=== PATIENT | male | born 1945 | race Caucasian/White ===

== ENCOUNTER 2017-03-07 08:48 | Inpatient (IN) | payer MEDICARE, OTHER ==
[~2017-03-07] VITALS: Ht 185.4 cm; Wt 103.1 kg
[~2017-03-07 08:48] MED LIST: B-STRESS CAP2000 MCG PO; BENEFIBER1 EAC1 PO; BIOTIN5 MG PO; CITRUCEL500 MG PO; CLOPIDOGREL75 MG PO; CVS OMEGA-3 KR1 EACH PO; DESONIDE15 G1 TOP; DIAZEPAM5 MG PO; FOLIC ACID0.8 M1 PO; GERITOL COMPLE1 EACH PO; HYDROCODON-ACE1 EA10 PO; IBUPROFEN600 MG PO; KETOCONAZOLE15 GM TOP; MULTI VITAMIN1 EACH PO; OXYBUTYNIN CHLOR5 MG PO; OXYCODONE HCL5 MG PO; POLYETHYLENE G255 GM PO; PROTOPIC100 G1 TOP; SAW PALMETTO80 MG PO; SIMVASTATIN80 MG PO; STOOL SOFTENER250 MG PO; SULFASALAZINE500 MG PO; VITAMIN C1000 M1 PO; ZESTRIL5 MG PO
[2017-03-07] MEDS ORDERED: METOPROLOL TART50 MG PO (09:28)
--- NOTE | 2017-03-07 15:27 | NUR ---
PATIENT ARRIVES TO CCU AT 1420 FROM ER. PATIENT IS A PARAPLEGIC AND IS BEING ADMITTED FOR PANCREATITIS. PATIENT RATES HIS ABDOMINAL PAIN A 10/10 AT THIS TIME. PATIENT'S LAST PAIN MEDICATION WAS AROUND 1100. PT NOTED TO BE SINUS TACHY AT 105-115 UPON ARRIVAL. PT IS ON ROOM AIR. BLOOD PRESSURES ARE ELEVATED AROUND 190-200/80-90. PATIENT CURRENTLY HAS A CONDOM CATHETER ON AND NORMALLY WILL SELF CATH HIMSELF TO VOID PATIENT HAS A NEUROGENIC BLADDER. PATIENT TO RECEIVE ANOTHER 1 L LR BOLUS AND TO BE STARTED ON A DILAUDID BOW MAKER. PATIENT GIVEN 0.5 MG IV DILAUDID AT THIS TIME. PT'S ANGELA VERY ATTENTIVE TO PATIENT AND HIS MAIN CAREGIVER AT HOME.
--- NOTE | 2017-03-07 17:03 | NUR ---
ATTEMPTED TO PLACE DICKENS CATHETER PER DR. AGUIRRE BUT UNABLE TO PLACE AN INDWELLING CATHETER AT THIS TIME. PT ABLE TO SELF CATH SELF FOR 625 ML URINE. NEW IV BAG OF FLUID HUNG AT 200 ML/HR. PT TO SELF CATH AGAIN AT 2029 THIS EVENING. PT HELPED TO REPOSITION IN BED. PT RESTING MORE COMFORAABLY AT THIS TIME. DELIVERY SPECIALIST DILAUDID TO BE SET UP.
[2017-03-07] MEDS ORDERED: LOPROX90 GM TOP (17:46)
--- NOTE | 2017-03-07 19:30 | NUR ---
REPORT RECEIVED FROM DAY SHIFT RN. PT AWAKE IN BED WATCHING TV, WITH IN THE ROOM. RESTING HR 90'S SINUS. NO REQUESTS OR COMPLAINTS AT THIS TIME.
--- NOTE | 2017-03-07 20:47 | NUR ---
10 MG IV LOPRESSOR GIVEN, HR IMMEDIATELY WENT FROM 105 TO 85. PT RATES PAIN AT THIS TIME 12/25, USING CUSTOMS HOUSE BROKER APPROPRIATELY.
--- NOTE | 2017-03-07 21:13 | NUR ---
ASSESSMENT DONE. PT IS PREPARING TO CATH HIMSELF. BP DOWN TO 162/85.
--- NOTE | 2017-03-07 22:59 | NUR ---
PT IS SLEEPING NOW, HR CONTINUES TO BE THE 80'S. HAVING BRIEF PERIODS OF SLEEP APNEA WITH DESATURATIONS TO 87% THEN QUICKLY BACK UP TO NINETIES.
--- NOTE | 2017-03-07 23:45 | NUR ---
PT REPOSITIONED ONTO BACK, DENIES NEEDS, ASSESSMENT DONE, ENCOURAGED TO USE CONTACT LENS POLISHER FOR PAIN.
--- NOTE | 2017-03-08 00:56 | NUR ---
PT CONTINUES TO HAVE FREQUENT PERIODS OF DESATURATIONS, DOWN TO 75% ON ROOM AIR. PLACED ON 2L/NC STILL DESATS TO 81%, TURNED UP TO 4L. WILL MONITOR.
--- NOTE | 2017-03-08 01:32 | NUR ---
BP UP TO 180/95 AND HR 105, WILL GIVE LOPRESSOR A LITTLE EARLIER. SPO2 STAYING ABOVE NINETY WITH PT WEARING 4L/NC. SLEEPING/SNORING LIGHTLY.
--- NOTE | 2017-03-08 02:00 | NUR ---
BP NOW DOWN TO 140/70 AFTER IV LOPRESSOR GIVEN. PT SLEEPING, STILL HAVING PERIODS OF DESATURATIONS.
--- NOTE | 2017-03-08 04:10 | NUR ---
BP ELEVATED BACK UP TO 180'S SYSTOLIC. PT HAS BEEN SLEEPING WELL THE LAST FEW HOURS, HAD STATED HE HADNT SLEPT IN THREE DAYS. WILL WAKE HIM UP TO SELF CATH AND RECHECK BP.
--- NOTE | 2017-03-08 05:03 | NUR ---
BP DOWN TO 157/78, HR 90'S. PT STATES HE SLEPT WELL, AND WILL NOW BE UP FOR THE MORNING. ASSESSMENT DONE, STATES ABDOMINAL PAIN CONTINUES, USING BIOFUELS PLANT SUPERINTENDENT FOR PAIN ONLY OCCASIONALLY DESPITE REMINDERS TO USE IT.
--- NOTE | 2017-03-08 05:19 | NUR ---
LAB IN TO DRAW
[2017-03-08] MEDS ORDERED: B COMPLEX1 EACH PO (07:44)
--- NOTE | 2017-03-08 07:44 | NUR ---
MED REC COMPLETE
--- NOTE | 2017-03-08 09:02 | NUR ---
DR AGUIRRE INTO SEE PT AT THIS TIME. ALL QUESTIONS ANSWERED.
--- NOTE | 2017-03-08 11:23 | NUR ---
REPORT CALLED TO M/S AT THIS TIME ALL QUESTIONS ANSWERED AND PT WILL BE TRANSPORTED VIA BED. ALL PERSOANL BELONGINGS TAKEN WITH PT.
--- NOTE | 2017-03-08 11:41 | NUR ---
PT C/O PAIN MEDICATED WITH 1MG DILAUDID IVP AT THIS TIME, PT ALSO TRANSFERED VIA BED TO ROOM 119. M/S RN UPDATED ALSO AT THIS TIME.
--- NOTE | 2017-03-08 11:47 | NUR ---
PT TO FLOOR AT 1140...VS OBTAINED. PAIN AT A TOLERABLE LEVEL. DENIES NEEDS AT THIS TIME.
--- NOTE | 2017-03-08 12:27 | NUR ---
REPOSITIONED PT ON L SIDE. TYLENOL ADMINISTERED FOR 10/10 SCHERER. FLU VAX GIVEN. PT DENIES FURTHER NEEDS. CALL LYNN IN REACH.
--- NOTE | 2017-03-08 13:34 | NUR ---
PT C/O SCHERER STILL ABOUT 8/10 WHEN HE SITS UP. PT ALSO C/O PAIN 10/10 IN HIS RUQ EXTENDING INTO HIS BACK. PAIN MEDICATION ADMINISTERED. PT VOIDED AT 1230, URINE DARK YELLOW. PT BOOSTED UP IN BED AND REPOSITIONED ON R SIDE. ENCOURAGED PT TO USE CALL LYNN IN 1 HOUR IF HIS PAIN IS STILL NOT TOLERABLE. CALL LYNN IN REACH.
--- NOTE | 2017-03-08 13:46 | NUR ---
PT WAS REPOSITIONED HIGHER IN THE BED AND ON HIS RIGHT SIDE. PT DID NOT NEED ANYTHING ELSE AT THE MOMENT
--- NOTE | 2017-03-08 14:20 | NUR ---
PT RESTING IN BED, MENTIONED HOW MUCH THE PAIN HAS TAKEN HOLD. SWELLING IN ABDOMEN, BUT STILL UPBEAT-JUST BACK FROM A TRIP TO SEE THEIR DAUGHTER. REALLY LOVES HIS FAMILY. SENT HIS HOME TO GET SOME REST. THEY ARE A WONDERFUL COUPLE THAT SELDOM COMPLAIN, AND CAN'T STAND TO BE AWAY FROM EACH OTHER. PT REQUESTED PRAYER, WILL FOLLOW NEEDED
--- NOTE | 2017-03-08 15:49 | NUR ---
ASSITED PT WITH REPOSITIONING BY REMOVING A PILLOW. PT NOW SUPINE. STATES HE WOULD LIKE TO REPOSITION IN A BIT. PT C/O PAIN 10/ IN RUQ EXTENDING INTO BACK. PAIN MEDS ADMINISTERED PER MAR. PT DENIES FURTHER NEEDS.
--- NOTE | 2017-03-08 16:42 | NUR ---
PT C/O CHEST PRESSURE THAT LASTED A FEW MINUTES ABOUT 10 MINUTES AGO. CALLED MD. OBTAINING VS AND EKG.
--- NOTE | 2017-03-08 16:59 | NUR ---
RT OBTAINING EKG AT THIS TIME.
--- NOTE | 2017-03-08 17:13 | NUR ---
PT RESTING IN BED. C/O PAIN 10/10 IN SAME SPOT. STATES THE PAIN IS SHARP. NO FLATUS OR STOOL IN COLOSTOMY BAG. HYPERACTIVE BS AUSCULTATED. AT BEDSIDE. PAIN MEDICATION ADMINISTERED PER AUG.
--- NOTE | 2017-03-08 17:24 | EKG ---
[facility] [address] [place] [address] Signed Normal sinus rhythm Biatrial enlargement Abnormal ECG When compared with ECG of 15-SEP-2016 10:02, No significant change was found Confirmed by JOEL AGUIRRE MD ([id number]) on 03/08/2017 5:24:18 PM Electronically Signed By: JOEL AGUIRRE MD 03/08/17 1724 PATIENT NAME: ASHLY HOLLAND Electrocardiogram DATE OF : 47 PHYSICIAN: JOEL AGUIRRE MD REPORT #: [id number] REPORT IS CONFIDENTIAL AND NOT TO BE RELEASED WITHOUT AUTHORIZATION
--- NOTE | 2017-03-08 18:06 | NUR ---
PT DID NOT HAVE A GOOD DAY. HE WAS TRANSFERRED OVER FROM ICU AT ABOUT NOON TODAY. HIS PAIN HAS BEEN SEVERE FOR MOST OF THE DAY. ENCOURAGED PT TO USE CALL LYNN WHEN HE NEEDS PAIN MEDICATION BECAUSE HE HAS NOT BEEN DOING SO. HAS BEEN AT BEDSIDE MOST OF THE DAY ASSISTING WITH MINIMAL REPOSTIONING (MOVING PILLOWS AROUND). PT HAD SOME CHEST PRESSURE THIS EVENING. VS HAVE BEEN STABLE. EKG WAS OBTAINED AND NEGATIVE. GAVE PT AND HIS EDUCATION ON PANCREATITS.
--- NOTE | 2017-03-08 18:30 | NUR ---
PT C/O PAIN 03/27 IN RUQ EXTENDING INTO BACK. PT STATES PAIN MEDICATION WORKED HOWEVER IT DID NOT LAST VERY LONG. I ONCE AGAIN ENCOURAGED PT TO USE CALL LIGHT WHEN HE NEEDS PAIN MEDICATION. PT STILL HAS YET TO DO THAT. IVF INFUSING, BOTH IV SITES INTACT. PT DENIES FURTHER NEEDS. CALL LYNN IN REACH.
--- NOTE | 2017-03-08 18:50 | NUR ---
PT IS RESTING IN BED SAFELY WITH CALL LIGHT IN REACH. PT DID NOT NEED ANYTHING ELSE AT THE OMMENT
--- NOTE | 2017-03-08 20:00 | NUR ---
FOUND PT IN BED WITH AT BEDSIDE. PT SEEMED IN GOOD SPIRITS.
--- NOTE | 2017-03-08 22:50 | NUR ---
HR WAS 112, SBP WAS 171, TEMP WAS 99.8. LOPRESSOR PO50MG AND TYLENOL PO 500MG HAVE BEEN GIVEN. PT IS MOSTLY A 10/10 WITH PAIN, ALL LOBES ARE CLEAR, LUQ, RUQ AND RLQ HAVE NORMAL ACTIVE BOWEL TONES. PT HAS A COLOSTOMY AND STATED THAT THERE IS STILL NO GAS OR STOOL IN IT SO FAR. ALL LOBES ARE CLEAR. STRAIGHT CATH WAS DONE AT 2100. WILL CONTINUE TO DO THEM Q4HRS.
--- NOTE | 2017-03-09 01:00 | NUR ---
10MG OF OXY GIVEN. PT HAS BEEN STRAIGHT CATHED. PT HAS BEEN TURNED Q 2HRS SO FAR.
--- NOTE | 2017-03-09 04:20 | NUR ---
PAIN CONTINUES TO BE A 10/10. DILAUDED 1MG IV WAS GIVEN ALMOST Q1HRS, PO OXY 10MG WAS ALSO GIVEN WITHOUT ANY PAIN RELIEF. MOST OF THE PAIN NOW IS IN HIS ULQ. LUQ, RUQ AND RLQ HAVE ACTIVE BOWEL TONES. COLOSTOMY BAG HAS NO GAS OR STOOL IN IT.
--- NOTE | 2017-03-09 05:14 | NUR ---
AT START OF SHIFT PT HAD A 99.8 TEMP. TYLENOL PO 500MG WAS GIVEN. PT HAS REMAINED AFEBRILE SINCE. PT AT START OF SHIFT ALSO HAD A HR OF 112 AND SBP OF 171, SCHEDULED LOPRESSOR HAS BEEN GIVEN. PT WAS PUT ON PRODUCTION CONTROL COORDINATING CLERK DUE TO HIGH FREQUENCY USE OF IV DILAUDED. PAIN HAS BEEN A 10/10 MOST OF THE NIGHT WITH ALL PRN PAIN MEDS AVAILABLE. WHEN ASKED PT STATED THAT HE USED TO TAKE OXYCODONE 80MG X4/DAY. PT SEEMS TO HAVE A VERY HIGH TOLERANCE TO OPIODS. I WILL CALL MD AGUIRRE ABOUT THIS ISSUE BEFORE SHIFT CHANGE. V/S AT 0200 WERE WDL. PT HAS BEEN STRAIGHT CATHED Q 4HRS THIS SHIFT. LAST URINE OUTPUT AT 0100 WAS ONLY 150ML. WILL CONTINUE TO MONITOR AND CALL MD AGUIRRE IF NEEDED ABOUT THIS ISSUE. LUQ, RUQ AND RLQ HAVE NORMAL ACITVE BOWEL TONES. HIS COLOSTOMY BAG HOWEVER STILL HAS NO GAS OR STOOL IN IT.
--- NOTE | 2017-03-09 06:38 | NUR ---
MD AGUIRRE WAS CALLED IN REGARDS TO LACK OF TORRES CONTROL AND INCREASE IN PT HR. HR AT THIS TIME IS 110-120. PT ALSO STATES THAT HE HAS INCREASED PRESSURE IN BOTH UPPER QUADRANTS. ABD SINGLE VIEW X-RAY WAS ORDERED.
--- NOTE | 2017-03-09 09:26 | NUR ---
PATIENT THIS MORNING APPEARS DIAPHORETIC, CLAMMY ALL OVER BODY. AFEBRILE. PROVIDING PATIENT WITH MORNING CARE. DISCUSSED CONCERNS OF NOT BEING ABLE TO HAVE BM, PATIENT REQUESTING MIRALAX, AND TO BE ABLE TO GET UP TO WHEELCHAIR. CALLED DR. AGUIRRE AND DISCUSSED POC. WBC ELEVATED THIS MORNING, PLAN TO RECHECK LIPASE AND PERFORM AN ABDOMINAL US. NOW INFUSING MAG RIDER, AND PATIENT IS STRAIGHT CATHING SELF. US NOW TO ROOM AND LIPASE RESULTS BACK 88H, TRENDING DOWN FROM ADMISSION. LUNG SOUNDS CLEAR, HR TACHY 107. ADMINISTERED MORNING MEDICAITONS. PATIENT STATED HE WAS IN 9/10 PAIN, APPEARS CALM, NO GRIMACE. ADMINISTERED 2 TABS OXYCODONE PO. DISCUSSED POC WITH PATIENT AND , ADDRESSED QUESTIONS AND CONCERNS.
--- NOTE | 2017-03-09 11:00 | NUR ---
PATIENT UP TO WHEELCHAIR WITH TATIANNA LIFT. SELF PUSHED IN HALLS, TOLERATED WELL. DID ADLS IN BATHROOM WITH SET UP. PAIN APPEARS WELL CONTROLLED AT THIS TIME. DISCUSSED NARCOTICS CAUSING CONSTIPATION. TOLERATING CLEAR LIQUIDS WELL. REPORTED DIAPHORESIS TO DR. AGUIRRE THIS MORNING. NEW ORDERS FOR BOWEL CARE. AFEBRILE.
--- NOTE | 2017-03-09 12:49 | NUR ---
THIS MORNING OTHER CO WORKERS HELPED ME TATIANNA PATIENT FROM BED TO WHEEL CHAIR.
--- NOTE | 2017-03-09 14:18 | NUR ---
PT EXPERIENCING A SLIGHT IMPROVEMENT TODAY. HE IS ALERT AND ORIENTED. BOTH HE AND HIS ARE WONDERFUL PEOPLE. GAVE THEM A GUIDEPOST, AND OFFERED PRAYER FOR THEM. THEY ALSO REQUESTED I CONTACT THEIR PRICING SPECIALIST, WHICH I DID.
--- NOTE | 2017-03-09 15:00 | NUR ---
PATIENT NOW APPEARS MORE FLUSHED THROUGHOUT FACE, PATIENT STATES " I FEEL LIKE I AM BURNING UP". LOW GRADE TEMP OF 99.8. REPORTED TO DR. AGUIRRE. NEW ORDER TO COLLECT UA. DISCUSSED WITH PATIENT. EXTREMITIES FEEL COLD TO TOUCH, PROVIDED WARM BLANKETS. BP STABLE.
--- NOTE | 2017-03-09 15:24 | NUR ---
PATIENT GIVEN HIS MIRALAX, WITH ICE. PATIENT'S PAIN AT THIS TIME 03/27 PATIENT GIVEN 2 OXYCODONE PO
--- NOTE | 2017-03-09 17:30 | NUR ---
PATIENT CONTINUES TO HAVE LOW GRADE TEMP 99.0, DISCUSSED WITH DR. CORONEL. ANSWERED QUESTIONS AND CONCERNS WITH FAMILY AND PATIENT. PATIENT TOLERATING FULL LIQUIDS WELL. SITTING UP IN BED. TURNED Q2HRS. PAIN WELL CONTROLLED AT THIS TIME, 10 WITH MOVMENT. BOWEL TONES ACTIVE, NO ACTIVITY WITH STOMA. CONTINUES TO DRINK MIRALAX.
--- NOTE | 2017-03-09 20:00 | NUR ---
RECEIVED REPORT AT 1900. FOUND PT IN BED AND PAIN BEING 10/10. SO FAR NO STOOL OR GAS HAS COME OUT OF COLOSTOMY BAG.
--- NOTE | 2017-03-09 20:39 | NUR ---
PT RESTING. PT WILL LET IT SUPPORT ENGINEER KNOW WHEN HE HAS TO STRAIGHT CATH.
--- NOTE | 2017-03-09 22:00 | NUR ---
PT IS STILL TACHY 100-120. OTHER V/S ARE WDL, PAIN IS STILL 10/10, BOWEL TONES ARE STILL PRESENT. STRAIGHT CATH DONE AT 2100, ALL LOBES CLEAR. NO NEW ISSUES NOTED SO FAR.
--- NOTE | 2017-03-10 00:11 | NUR ---
PT JUST HAD MASSIVE BM. ABD IS MUCH LESS DISTENDED NOW AND PAIN IS NOT AN ISSUE AT THIS TIME AT ALL.
--- NOTE | 2017-03-10 01:30 | NUR ---
STOMA CARE WAS DONE BY PT. PER PT WISH WE ARE WAITING TO STRAIGHT CATH HIM BECAUSE HE WOULD LIKE TO SLEEP AND HIS URINE OUTPUT IS MARGINAL MOST OF THE TIME. PER PT IT IS A RISK VS. BENEFIT QUESTION. URINE SAMPLE WAS ALSO OBTAINED AND SENT TO LAB EARLIER.
--- NOTE | 2017-03-10 03:21 | NUR ---
ASSISTED PT WITH SELF CATH. 350ML OUT. THERE WAS SOME SARAVANAN BLOOD IN URINE. PT IS TRYING TO SLEEP AGAIN. THE HAS ALSO BEEN MORE OUTPUT IN THE COLOSTOMY BAG.
--- NOTE | 2017-03-10 05:17 | NUR ---
PT STARTED OUT WITH PAIN 10/10, DISTENTION AND BELCHING. AT AROUND 0030 COLOSTOMY BAG HAD A LARGE FORMED BM. PT FELT IMMEDIATE PAIN RELIEF. PT ALSO STOPPED BELCHING AND ABD DISTENTION IS MILD NOW ALONG WITH LESS TENDERNESS. PT SO FAR STRAIGHT CATHED HIMSELF X2, OUTPUT IS ADEQUATE. HOWEVER, WITH HIS LAST CATH, I NOTICED SOME SARAVANAN BLOOD DRIPPING FROM HIS MEATUS. V/S ARE WDL, LOPRESSOR WAS GIVEN. PT IS SLEEPING AT THIS TIME.
--- NOTE | 2017-03-10 08:29 | NUR ---
PT IS SITTING UP IN BED EATING BREAKFAST WITH CALL LIGHT IN REACH. PT DID NOT NEED ANYTHING ELSE AT THE MOMENT
--- NOTE | 2017-03-10 09:57 | NUR ---
PATIENT SITTING UP IN BED, DIET ADVANCED TO REGULAR. PATIENT NOW LOOKING AT MENU. COLOSTOMY PRODUCING LARGE AMOUNTS SOFT STOOL. CHANGING BAG WITH PATIENT NOW. VS STABLE. BOWEL TONES ACTIVE. PAIN MANAGEMENT IMPROVED, LESS DISTENDED. PO SEPTRA STARTED THIS MORNING FOR UTI.
--- NOTE | 2017-03-10 10:55 | NUR ---
PT IS RESTING IN BED SAFELY WITH CALL LIGHT IN REACH VISITING WITH . PT DID NOT NEED ANYTHIG ELSE AT THE MOMENT
--- NOTE | 2017-03-10 12:01 | NUR ---
PATIENT STRAIGHT CATH 1300 OF URINE. ADMINISTERED PRN VALIUM FOR SPASMS PER DR. CORONEL. TOLERATING REGULAR DIET WELL.
--- NOTE | 2017-03-10 13:52 | NUR ---
PT IS SITTING UP IN BED EATING HIS LUNCH, CALL LIGHT IN REACH. PT DID NOT NEED ANYTHING AT THE MOMENT
--- NOTE | 2017-03-10 18:02 | NUR ---
PT IS RESTING IN BED SAFELY WITH CALL LIGHT IN REACH. PT'S INFORMED ME OF HIS OUT PUT. PT DID NOT NEED ANYTHING ELSE AT THE MOMENT
--- NOTE | 2017-03-10 18:40 | NUR ---
PATIENT RESTING IN BED, CONTINUES TO HAVE GOOD STOOL OUTPUT. TOLERATING REGULAR DIET. NO COMPLAINTS OF PAIN. PATIENT STATES " I AM READY TO GO HOME." LUNG SOUNDS CLEAR. GOOD URINE OUTPUT.
--- NOTE | 2017-03-10 19:52 | NUR ---
Pt resting, eyes closed, no resp distress noted,
--- NOTE | 2017-03-10 20:55 | NUR ---
REPOSITIONED IN BED, COOP WITH ASSESSMENT
--- NOTE | 2017-03-10 21:22 | NUR ---
pT DECLINES DSS, "I HAD TOO MANY STOOLS" C/O ABD CRAMPING, EXPLAINED TO PT WHY HE WAS GETTING IT "I UNDERSTAND" STATES
--- NOTE | 2017-03-10 23:04 | NUR ---
PT SELF CATH. 1400CC OUT.
--- NOTE | 2017-03-11 02:42 | NUR ---
RESTING, NO DISTRESS, EYES CLOSED
--- NOTE | 2017-03-11 05:19 | NUR ---
Pt currently awake, watching tv, no c/o pain at this time. Was medicated onece this shift with oxycodin 5mg po c/o all over pain. 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 Has self cathed twice, voiding large amounts of clear urine. IVF infusing w/o problems. BP 181/88, Dr Bejarano notified, no new orders. Pt tolerated regular diet well, tolerating liquids w/o problems. No c/o , no requests at this time
--- NOTE | 2017-03-11 08:00 | NUR ---
PATIENT AAOX3, WATCHING TELEVISION. ASSISTING WITH DAILY CARE. DISCUSSED HOME CARE. PATIENT STATES " I WANT TO GO HOME SOON POSSIBLE." DR. ROBERTSON AWARE.
[2017-03-11] MEDS ORDERED: SULFAMETHOXAZO1 EAC1 PO (09:15)
[2017-03-11] MEDS ORDERED: ZENPEP DR 5,001 EACH PO (09:16)
--- NOTE | 2017-03-11 10:30 | NUR ---
PATIENT COOCYX HAS A 1CM WIDE BY 1 CM LONG STAGE ONE ULCER, PHOTOS AND DOCUMENTED IN CHART. PATIENT SIGNED CONENT FOR PHOTO. DR. ROBERTSON AWARE, ORDER TO PLACE WINSTON ANSARI ON.
--- NOTE | 2017-03-19 11:00 | NUR ---
PT ANGELA WAS IN AND WAS CONCERNED ABOUT THE 2 SM BREAKDOWN AREAS THAT THE PT HAD DEVELOPED WHILE HE WAS IN THE HOSPITAL AND HOW TO TAKE CARE OF THEM. I TOLD HER WE COULD GET HIM SET UP WITH OP DRESSING CHANGES AFTER I TALK WITH DR TAYLOR. I CALLED DR TAYLOR OFFICE AND THEY INFORMED ME HE IS OUT OF THE OFFICE TODAY. MESSAGE GIVEN TO THE OFFICE STAFF FOR HIM TO CALL ME.
--- NOTE | 2017-03-20 15:45 | NUR ---
SPOKE WITH DR TAYLOR AND HE AGREED TO SEND OUTPT ORDERS FOR WOUND CARE FOR THIS PT. ORDERS RECIEVED HERE AND I CALLED DS AND SPOKE WITH NINOSKA I WAS PLANNING ON CALLING THE PT BACK AND LETTING HER KNOW WHAT THE PLAN IS. DS PHONE # GIVEN TO HER.
== END 2017-03-11 10:55 | disposition home or self-care (01) | DRG 439 ==
LOC: ED 08:48 → MS 14:23 → CCU 14:23 → MS 03-08 11:40
PROVIDERS: ADMIT Internal Medicine
PROC: 3E0234Z Introduction of Serum, Toxoid and Vaccine into Muscle, Percutaneous Approach (ICD-10-PCS; principal; 2017-03-08)
DX: K85.90 Acute pancreatitis without necrosis or infection, unspecified (principal); R65.10 Systemic inflammatory response syndrome (SIRS) of non-infectious origin without acute organ dysfunction; E87.1 Hypo-osmolality and hyponatremia; G82.21 Paraplegia, complete; K59.2 Neurogenic bowel, not elsewhere classified; F11.20 Opioid dependence, uncomplicated; I25.10 Atherosclerotic heart disease of native coronary artery without angina pectoris; I10 Essential (primary) hypertension; N31.9 Neuromuscular dysfunction of bladder, unspecified; E86.1 Hypovolemia; E78.5 Hyperlipidemia, unspecified; Z23 Encounter for immunization; Z95.1 Presence of aortocoronary bypass graft; Z87.891 Personal history of nicotine dependence; Z93.3 Colostomy status
CPT/HCPCS: 36415; 74000; 74020; 74177; 76705; 80048; 80053; 80076; 81001; 83690; 83735; 83930; 83935; 84550; 85025; 87088; 90662; 93005; 93010; G0008; J1170; J1650; J2405; J3475; J3480; J7030; J7120; Q9967

== ENCOUNTER 2021-02-15 10:55 | Day surgery (SDC) | payer MEDICARE, OTHER ==
--- NOTE | 2021-02-10 11:17 | NUR ---
PHONE CALL RECEIVED FROM LAB ABOUT CRITICAL VAULE OF NA OF 116. DR LUU NOTIFIED AND THEN CALL PT AND INFORMED THEM ALSO. PT IS TO CALL DR LUU OFFICE FOR INSTRUCTAION FOR LOW LAB VALUE. REPORTS THAT PT WAS IN THE HOSPITAL IN SEPTEMBER FOR LOW NA ALSO.
[~2021-02-15] VITALS: Ht 185.4 cm; Wt 104.5 kg
[~2021-02-15 10:55] MED LIST changes: +B COMPLEX1 EACH PO; +CEFDINIR300 MG PO; +FUROSEMIDE40 MG PO; +HYDROCODON-ACE1 EA11 PO; +LASIX40 MG PO; +LISINOPRIL-HCT1 EAC2 PO; +LISINOPRIL-HCT1 EACH PO; +LOPROX90 GM TOP; +METOPROLOL TART50 MG PO; +OMEPRAZOLE40 MG PO; +POTASSIUM CHLO10 ME2 PO; +SULFAMETHOXAZO1 EAC1 PO; +ULTRAM50 MG PO; +ZENPEP DR 5,001 EACH PO
--- NOTE | 2021-02-15 12:19 | NUR ---
THIS RN TO ROOM TO CHECK ON PT. PT OREINTED TO ALL AND RESPONDING APPROPRIATLY. PT REPORTS INCREASING MUSCLE SPASMS AND WEAKNESS SINCE HIS DISCHARGE FROM THE HOSPITAL LAST SEPTEMBER. PT ALSO REPORTS HIS HANDS HAVE BEEN "TINGLING A LOT." PT STATES "MY FEET ARE ALWAYS NUMB." PT STATES HIS LAST SODIUM VALUES (PRIOR TO PRE-OP) WERE TAKEN BY DR. TAYLOR. PT DENEIS ADDITIONAL REQUESTS OR COMPLAINTS. CALL LIGHT WITHIN REACH. PTS PRIMARY RN UPDATED.
--- NOTE | 2021-02-15 12:56 | NUR ---
DR. LUU TO BEDSIDE FOR WOUND EVALUATION. DRESSING TO RIGHT GLUTEAL WOUND REMOVED BY DR. LUU. WOUND PACKED WITH 1 4X4 GAUZE BY MD. GAUZE APPLIED OVER WOUND, NO TAPE PRESENT PER MD. PT VERBALIZES UNDERSTANDING OF PLAN OF CARE AND CONSULTATION WITH HOSPITALIST. PT RESTING IN BED. NO ADDITIONAL REQUESTS OR CONERNS AT THIS TIME. CALL LIGHT WITHIN REACH. BED RAILS UP. PTS AT BEDSIDE.
--- NOTE | 2021-02-15 13:30 | NUR ---
DR ROBERTSON TO BEDSIDE TO CONSULT ON PT. CALL PLACED TO DR. TAYLOR WHO WILL PLACE OUTPATIENT ORDERS FOR MEDICATIONS AND FOR PT TO FOLLOW UP. PT UPDATED BY DR. ROBERTSON.
--- NOTE | 2021-02-15 13:51 | NUR ---
DR. ROBERTSON STATES OK TO DISCHARGE PT. ORDERS PLACED IN DISCHARGE REPORT PER DR. ROBERTSON'S VERBAL INSTRUCTIONS. REPEAT BACK PERFORMED FOR CONFIRMATION OF INSTRUCTIONS.
[2021-02-15] MEDS ORDERED: LISINOPRIL20 MG PO (14:14)
--- NOTE | 2021-02-15 14:15 | NUR ---
CALL PLACED TO DR. ROBERTSON TO CONFIRM HOME MEDICATIONS AND DISCHARGE ORDER. DR. ROBERTSON STATES NEW RX WAS CALLED TO [facility] BY DR. TAYLOR AND PT IS OK TO DISCHARGE. DR. LUU CONTACTED AND STATES PT IS OKAY TO DISCHARGE UNDER DR. ROBERTSON AND DR. TAYLORS NEW ORDERS. IV DC'D BY BRITTANY HUFF. PT TRANSFERED BACK TO WHEELCHAIR BY [facility]. DISCHARGE INSTRUCTIONS REVIEWED WITH PT AND PTS . PT AND VERBALIZES UNDERSTANDING AND STATE THEIR QUESTIONS HAVE BEEN ANSWERED. PT WHEELED FROM DAY/SURGERY BY . NO ADDITIONAL REQUESTS OR CONCERNS.
--- NOTE | 2021-02-15 14:20 | NUR ---
1415: IV FEREHEME INFUSION COMPLETE. PATIENT TOLERATED INFUSION WELL. IV FLUSHED WITH NS. VS CHECKED. PATIENT WAITING FOR 60 MINUTE POST INFUSION OBSERVATION. CALL LIGHT WITHIN REACH.
--- NOTE | 2021-02-18 10:04 | CONS ---
[facility] [address], [place] [address] Signed DATE OF CONSULTATION: TIME: 1:00 p.m. PROBLEM: Concurrent hyponatremia, perineal wound issues. HISTORY OF PRESENT ILLNESS: This 75-year-old white man is a patient of Dr. Damien Croft, was evaluated in my clinic on February 04, 2021. He was referred on an urgent basis for "rectal issues." It is recalled he has undergone an end-colostomy with Parvin's pouch related to difficulties with his bowel function a number of years ago. He has been paraplegic for decades. He last underwent colonoscopy in 2004. Colostomy placement was in 2005. The patient is known to have episodic recurrent hyponatremia, which is largely asymptomatic. He had fallen out of his wheelchair, suffered a right clavicle fracture some time ago and had some perineal issues including a wound. He has been under the care of home health nurses from [place] and his says there is a "hole" in the perineum. My attempts to examine him in the office were quite impossible related to his unwillingness and inability to assist in transfer to a stretcher for examination. Attempts at examining in the wheelchair were quite impossible as well. On the basis of his episodic perineal pain and his issue of a wound, which is in need of evaluation, plans were made to provide for colonoscopy today as well exam under anesthesia of the perineum. In his preoperative lab studies, he was noted to have a sodium as low as 119. He has had sodium level in the 120s before. He did undergo evaluation by Joo Robins CRNA in this regard. I asked the patient to be evaluated by his primary care provider, who was not available, but his partner Dr. Woodward told him to go to the hospital to the day surgery for treatment. The patient declined. Instead of that, our plan was to repeat his chem profile today on the day of anticipated colonoscopy and evaluation of the perineum. His evaluation did show in fact his sodium lower at 115. His potassium is 4.6, chloride is 80, carbon dioxide 33, glucose 108, and creatinine of 0.42. The patient tells me that he "drinks lots of water" at home and his says that she has observed sodium restriction for many years related to advice received by vessel engineer many yeaats ago. He takes hydrocholorthizide daily as well....in short a set up for hyponatremia . He was hospitalized in September by Dr Haro for hyponatremia as well. Electronically Signed By: CIARA LUU MD 02/18/21 1004 PATIENT NAME: ASHLY HOLLAND CONSULTATION DATE OF : 47 REPORT #: [id number] PHYSICIAN: CIARA LUU MD PCP: MATTHIAS CROFT MD REPORT IS CONFIDENTIAL AND NOT TO BE RELEASED WITHOUT AUTHORIZATION [address] [address] Signed Currently, the patient feels reasonably well, has been troubled of course by pedal edema bilaterally and no neurologic symptoms particularly. Given his sodium level today, he is deemed inadvisable to undergo any sort of sedation for colonoscopy despite having undergone a bowel prep. He would still benefit from evaluation of his perineum to assess the wound with the assistance of the Raquel lift available in the day surgery area. His repeat lab studies today are reviewed, which show a sodium of 115, a potassium of 3.9, a chloride of 77, creatinine of 0.42, glucose of 112, total bilirubin 1.5. Liver enzymes normal. PHYSICAL EXAMINATION: GENERAL: He is alert and oriented and shows no evidence of neurotoxicity as I can tell. VITAL SIGNS: Temperature is 97.9, pulse is 85, blood pressure 160/82. NECK: Shows no thyromegaly or cervical adenopathy. Trachea is midline. CHEST: Shows normal respiratory excursion. Examination of the perineum shows excoriated skin and evidence of flaccid ano rectum as would be expected. In the right perineum is a sinus from which an iodoform gauze dressing was removed. There was good granulation in the depths of the wound, it extends approximately 4 cm or so, it was repacked with plain gauze. There is no sign of cellulitis or perineal infection. ASSESSMENT: The patient has a perineum that would benefit from application of Calmoseptine ointment. He does not have stool passage through this area as he has had a diverting colostomy. It would be advisable to perform colonoscopy as well as proctoscopy when his electrolytes are in a better situation. As to the management of his current findings of hyponatremia with a sodium of 115, I have called Dr. Haro. She will be considering the idea of consultation. The patient and his inquire whether outpatient management could be undertaken. I am uncertain if a sodium quite that low would be best managed with inpatient therapy to include Lasix diuresis, cautious sodium repletion. I will discuss this with Dr. Haro. MD MOUNA Fuentes/SARAH BETH Electronically Signed By: CIARA LUU MD 02/18/21 1004 PATIENT NAME: ASHLY HOLLAND CONSULTATION DATE OF : 47 REPORT #: [id number] PHYSICIAN: CIARA LUU MD PCP: MATTHIAS CROFT MD REPORT IS CONFIDENTIAL AND NOT TO BE RELEASED WITHOUT AUTHORIZATION [address] [place], [place] [address] Signed /[id number] cc: MD Matthias Martinez MD Copies: CHAPO HARO MD, JONATHAN MD ~ Electronically Signed By: CIARA LUU MD 02/18/21 1004 PATIENT NAME: ASHLY HOLLAND CONSULTATION DATE OF : 47 REPORT #: [id number] PHYSICIAN: CIARA LUU MD PCP: MATTHIAS CROFT MD REPORT IS CONFIDENTIAL AND NOT TO BE RELEASED WITHOUT AUTHORIZATION
== END 2021-02-15 14:30 | disposition home or self-care (01) ==
LOC: DS 10:55 → OPS 10:55 → DS 12:00 → OPS 12:00
PROVIDERS: ATTEND Surgery
DX: E87.1 Hypo-osmolality and hyponatremia (principal); K62.5 Hemorrhage of anus and rectum; G82.20 Paraplegia, unspecified; I10 Essential (primary) hypertension; G47.30 Sleep apnea, unspecified; Z95.1 Presence of aortocoronary bypass graft; Z93.3 Colostomy status; Z53.8 Procedure and treatment not carried out for other reasons
CPT/HCPCS: 80053; J7121

== ENCOUNTER 2024-04-15 11:25 | Emergency (ER) | payer OTHER, MEDICARE ==
[~2024-04-15] VITALS: Ht 185.4 cm; Wt 109.0 kg
[~2024-04-15 11:25] MED LIST changes: +CEPHALEXIN500 M1 PO; +LISINOPRIL20 MG PO
[2024-04-15 13:35] LABS: BILIRUBIN, URINE NEGATIVE (negative); KETONE, URINE NEGATIVE (Negative)
[2024-04-15 13:36] LABS: BLOOD/HGB, URINE SMALL (Negative); COLLECTION TYPE, URINE CATH; LEUK ESTERASE, URINE POSITVE (negative); NITRITE, URINE NEGATIVE (negative); PH, URINE 8 (5-7)
[2024-04-15 13:39] LABS: EPITHELIAL CELLS, URINE SQUAMOUS 1+ /lpf (0-1+); RED BLOOD CELLS, URINE 0-1 /hpf (0-5); WHITE BLOOD CELLS, URINE >50 /HPF (0-5)
[2024-04-15 13:40] LABS: BACTERIA, URINE 2+ /hpf (negative); CASTS, URINE NONE SEEN \\lpf; CRYSTALS, URINE NONE SEEN (0-1+); REFLEX CULTURE, URINE Yes (No)
[2024-04-15] MEDS ORDERED: AMOX TR-K CLV1 EAC1 PO (14:58)
[2024-04-15 15:05] VITALS: BP 124/80
== END 2024-04-15 15:05 | disposition home or self-care (01) ==
LOC: ED 11:25
PROVIDERS: Emergency Medicine
DX: N39.0 Urinary tract infection, site not specified (principal); B96.4 Proteus (mirabilis) (morganii) as the cause of diseases classified elsewhere; I25.10 Atherosclerotic heart disease of native coronary artery without angina pectoris; I10 Essential (primary) hypertension; E78.49 Other hyperlipidemia; Z87.891 Personal history of nicotine dependence; Z95.1 Presence of aortocoronary bypass graft; Z91.048 Other nonmedicinal substance allergy status; Z88.1 Allergy status to other antibiotic agents; Z79.899 Other long term (current) drug therapy
CPT/HCPCS: 81001; 87077; 87088; 87186; 99283

== ENCOUNTER 2024-08-04 05:56 | Day surgery (SDC) | payer OTHER ==
[2024-07-30 09:32] VITALS: BP 138/75
[~2024-08-04] VITALS: Ht 185.4 cm; Wt 109.1 kg
[~2024-08-04 05:56] MED LIST changes: +ALDACTONE50 MG PO; +AMOX TR-K CLV1 EAC1 PO; +LACTATED RINGER'S 1,000 ML IV SCH; +PLAVIX75 MG PO; +TORSEMIDE10 MG PO
[2024-08-04 06:26] VITALS: BP 137/66
[2024-08-04] MEDS ORDERED: CEFDINIR300 MG PO (06:32)
[2024-08-04] MEDS ORDERED: ONDANSETRON ODT4 MG PO (06:32)
[2024-08-04] MEDS ORDERED: LIDOCAINE HCL 1% 5 ML SDV INJ ONE (07:00)
[2024-08-04] MEDS ORDERED: NALOXONE HCL 0.4 MG SYR IV PRN (07:00)
[2024-08-04] MEDS ORDERED: ondansetron HCL 4 MG/2 ML VIAL IV PRN ×2 (07:00→07:45)
[2024-08-04] MEDS ORDERED: CEFAZOLIN SODIUM 2 GM/20 ML SYR IV SCH (07:00)
[2024-08-04] MEDS ORDERED: fentaNYL citrate 50 MCG/ML SDV IV PRN (07:00)
[2024-08-04] MEDS ORDERED: IBLOOD GLUCOSE TEST STRIP 1 EA TEST VI PRN ×2 (07:00)
[2024-08-04] MEDS ORDERED: fentaNYL citrate 100 MCG/2 ML VIAL ONE (07:10)
[2024-08-04] MEDS ORDERED: LIDOCAINE HCL 2% 5 ML SDV ONE (07:10)
[2024-08-04] MEDS ORDERED: propofoL 200 MG/20 ML VIAL ONE (07:10)
--- NOTE | 2024-08-04 07:27 | NUR ---
PT NOT AVAILABLE FOR VISIT. PROVIDED PRAYER.
[2024-08-04] MEDS ORDERED: HYOSCYAMINE SULFATE 0.375 MG TAB.ER.12H PO PRN (07:45)
[2024-08-04] MEDS ORDERED: ePHEDrine sulfate 50 MG/ML AMP ONE (07:45)
[2024-08-04] MEDS ORDERED: MORPHINE SULFATE 15 MG TABCR PO PRN (07:45)
[2024-08-04] MEDS ORDERED: MORPHINE SULFATE 4 MG/ML VIAL IV PRN (07:45)
[2024-08-04 09:00] VITALS: BP 134/75
--- NOTE | 2024-08-04 09:00 | NUR ---
PT ARRIVES TO DS FROM PACU VIA STRETCHER. PT REPORTS NO PAIN OR NAUSEA AT THIS TIME. PT A&O AND ASKING QUESTIONS APPROPRIATELY. DICKENS CATH DC'ED PER SILVIA NÚÑEZ. 300 ML OF CLEAR/YELLOW URINE DRAINED. PT AND PT RE-PLACING DICKENS CATH. PT ON RA W/O2 >90% AND RESPIRATIONS EVEN AND UNLABORED, NO SIGNS OF DISTRESS. CALL LIGHT WITHIN REACH. PT AND PT REPORT NO FURTHER NEEDS OR QUESTIONS AT THIS TIME.
--- NOTE | 2024-08-04 09:23 | NUR ---
08/04/24 0923 Jessica Abarca 0824 PT ARRIVED IN PACU NON RESPONSIVE TO NOXIOUS STIMULI WITH OPA IN PLACE LAYING SUPINE. 0834 PT REACTIVE. OPA REMOVED. 0840 PT REPOSITIONED ON R SIDE. NO C/O'S. 0845 PT REPOSITIONED TO L SIDE. NO C/O'S. 0900 TO DS. REPORT GIVEN TO RN. AT BEDSIDE.
[2024-08-04 09:48] VITALS: BP 129/68
--- NOTE | 2024-08-04 10:24 | NUR ---
PT DISCHARGED TO HOME WITH ALL BELONGINGS. DISCHARGE INSTRUCTIONS GIVEN ON MEDICATION, FOLLOW-UP, WHEN TO CONTACT THE MD, ACTIVITY, AND DIET. PT AND VERBALIZED UNDERSTANDING AND LEFT FOR HOME VIA WHEELCHAIR.
[2024-08-04] MEDS ORDERED: SEVOFLURANE 250 ML BTL INH ONE (15:20)
== END 2024-08-04 10:15 | disposition home or self-care (01) ==
LOC: DS 05:56 → OPS 05:56 → DS 07:30 → OPS 07:30 → DS 11:40
PROVIDERS: ATTEND Urology
PROC: 0TJB8ZZ Inspection of Bladder, Via Natural or Artificial Opening Endoscopic (ICD-10-PCS; principal; 2024-08-04 07:30)
DX: N31.9 Neuromuscular dysfunction of bladder, unspecified (principal); N39.0 Urinary tract infection, site not specified; N32.89 Other specified disorders of bladder; I25.10 Atherosclerotic heart disease of native coronary artery without angina pectoris; I10 Essential (primary) hypertension; N35.919 Unspecified urethral stricture, male, unspecified site; Z79.899 Other long term (current) drug therapy
CPT/HCPCS: 00910; J0690; J2003; J2704; J3010; J7121

== ENCOUNTER 2024-09-20 18:17 | Emergency (ER) | payer OTHER, MEDICARE ==
[~2024-09-20] VITALS: Ht 185.4 cm; Wt 109.1 kg
[~2024-09-20 18:17] MED LIST changes: -LACTATED RINGER'S 1,000 ML IV SCH; +ONDANSETRON ODT4 MG PO
[2024-09-20] MEDS ORDERED: AMOXICILLIN500 MG PO (18:50)
[2024-09-20 19:00] LABS: BASOPHILS 0.7 % (0-2); EOSINOPHILS 1.4 % (0-6); HEMATOCRIT 48.7 % (35.0-50.0); HEMOGLOBIN 16.5 g/dL (12.0-18.0); LYMPHOCYTES 10.4 % (24-44); MCH 28.7 (27-36); MCV 84.4 fl (81-99); MONOCYTES 8.2 % (0-12); NEUTROPHILS 79.3 % (39-80); PLATELET COUNT 284 K/uL (140-440); RBC 5.78 M/ul (4.3-5.7); RDW 14.7 (10.5-15.0)
[2024-09-20 19:21] LABS: ALBUMIN 3.1 g/dL (3.4-5.0); ALBUMIN/GLOBULIN RATIO 0.7 (1.1-2.4); ANION GAP 13.1 (7-21); BILIRUBIN, TOTAL 0.6 mg/dL (0.2-1.0); BUN/CREATININE RATIO 42.85 (6.0-28.6); CREATININE, SERUM 0.77 mg/dL (0.70-1.30); POTASSIUM 4.1 mmol/L (3.5-5.1); PROTEIN, TOTAL 7.5 g/dL (6.4-8.2)
[2024-09-20] MEDS ORDERED: SODIUM CHLORIDE 0.9% 500 ML IV PRN (19:45)
[2024-09-20] MEDS ORDERED: ondansetron HCL 4 MG/2 ML VIAL IV ONE (19:45)
[2024-09-20 20:04] LABS: BILIRUBIN, URINE NEGATIVE (negative); BLOOD/HGB, URINE MODERATE (Negative); KETONE, URINE NEGATIVE (Negative); LEUK ESTERASE, URINE LARGE (negative); NITRITE, URINE NEGATIVE (negative)
[2024-09-20 20:35] LABS: BACTERIA, URINE 1+ /hpf (negative); CASTS, URINE NONE SEEN \\lpf; COLLECTION TYPE, URINE CLEAN CATCH; CRYSTALS, URINE NONE SEEN (0-1+); EPITHELIAL CELLS, URINE NONE SEEN /lpf (0-1+); REFLEX CULTURE, URINE Yes (No); WHITE BLOOD CELLS, URINE >50 /HPF (0-5)
[2024-09-20] MEDS ORDERED: CEFTRIAXONE SODIUM 2 GM in SODIUM CHLORIDE 0.9% 100 ML IV ONE (21:30)
[2024-09-20] MEDS ORDERED: ONDANSETRON ODT8 MG PO (21:45)
[2024-09-20] MEDS ORDERED: CEFDINIR300 MG PO (21:45)
[2024-09-20] MEDS ORDERED: ONDANSETRON 4 MG HOME.PACK SL ONE (22:00)
[2024-09-20] MEDS ORDERED: CEFDINIR 300 MG HOME.PACK PO ONE (22:00)
[2024-09-20 23:10] VITALS: BP 131/78
== END 2024-09-20 23:10 | disposition home or self-care (01) ==
LOC: ED 18:17
PROVIDERS: Emergency Medicine
DX: N39.0 Urinary tract infection, site not specified (principal); M86.651 Other chronic osteomyelitis, right thigh; L89.159 Pressure ulcer of sacral region, unspecified stage; I10 Essential (primary) hypertension; Z87.891 Personal history of nicotine dependence; Z88.1 Allergy status to other antibiotic agents; Z91.048 Other nonmedicinal substance allergy status; Z79.899 Other long term (current) drug therapy
CPT/HCPCS: 36415; 74177; 80053; 81001; 83690; 85025; 87088; 96361; 96375; 99284-25; A9270; J0696; J2405; J7040; Q9967